=== PATIENT | female | born 1950 | race Caucasian/White ===

== ENCOUNTER 2017-08-24 17:21 | Emergency (ER) | payer MEDICARE ==
[~2017-08-24] VITALS: Ht 162.6 cm; Wt 81.0 kg
[~2017-08-24 17:21] MED LIST: TAB-TAB PO; TRAM50 PO; VITA-83 PO; ZOVI800T13 PO
[2017-08-24 17:24] VITALS: BP 231/123; PULSE 98; RESP 16; TEMP 99.3; O2SAT 98
[2017-08-24] MEDS ORDERED: LACTCAP8 PO (17:37)
[2017-08-24] MEDS ORDERED: ASCO1CAP PO (17:37)
[2017-08-24] MEDS ORDERED: MULTCAP3 PO (17:37)
[2017-08-24] MEDS ORDERED: SODIUM CHLOR 0.9% 1000 ML INJ 1,000 ML IV SCH (17:40)
[2017-08-24] MEDS ORDERED: SODIUM CHLORIDE 0.9% FLUSH 10 ML FLUSH IV FLUSH PRN (17:45)
--- NOTE | 2017-08-24 17:49 | PD ---
HPI Chief Complaint: Abdominal Pain Time Seen by Provider: 17:27 Travel History International Travel<30 days: No Contact w/Intl Traveler<30days: No Traveled to known affect area: No History of Present Illness HPI The patient is a 66-year-old female who presents to the emergency department via private vehicle for abdominal pain, cramping, decreased bowel movements. The patient states her symptoms started a week ago last Tuesday with diffuse abdominal cramping. The patient states she had a few episodes of loose, watery, stool which is minimal. She then developed stool which appear to be mucus, occasionally dark colored, occasionally with a small amount of blood. She does have a history of external hemorrhoids and states the bleeding may be from the hemorrhoids. However, she has been able to eat without difficulty, but notes no bowel movement except for one small one last Tuesday for approximately 1 week. She denies any nausea or vomiting. She does complain of abdominal bloating and mild distention. She denies any known history of colon cancer but is never had a colonoscopy and does not follow up with a primary physician on a regular basis. She does have a history of hypertension but takes no medications for her blood pressure at this time. She did note a fever as high as 99.7 over the weekend. She denies any dysuria. She denies any previous abdominal surgeries. Symptoms are moderate. [facility] Past Medical History Narrative Medical Hypertension Diminished Hearing: No Hypertension: Yes Immunizations Current: Yes Past Surgical History Other Surgery: Yes (TONSILS AND ADENOIDS) Social History Alcohol Use: Yes (3-4 DRINKS/DAY) Tobacco Use: Yes (1PPD) Substance Use: No Allergies-Medications (Allergen,Severity, Reaction): Coded Allergies: No Known Allergies (Unverified Adverse Reaction, Unknown, 08/24/17) Reported Meds & Prescriptions Reported Meds & Active Scripts Active Reported Probiotic (Lactobacillus Acidophilus) 10 Billion Cell Cap 1 Cap PO TIDAC Multivitamins (Multiple Vitamin) 1 Cap Cap 1 Cap PO DAILY Vitamin C Tr (Ascorbic Acid) 500 Mg Caper 1,000 Mg PO DAILY Review of Systems Except as stated in HPI: all other systems reviewed are Neg General / Constitutional: Positive: Fever Cardiovascular: No: Chest Pain or Discomfort Respiratory: No: Shortness of Breath Gastrointestinal: Positive: Diarrhea (A few real small watery bowel movements with mucus), Abdominal Pain, Constipation, No: Nausea, Vomiting, Loss of Appetite Genitourinary: No: Dysuria Skin: No Rash Physical Exam Narrative GENERAL: Awake, alert, pleasant 66-year-old female who appears her stated age and is in no acute respiratory distress. SKIN: Focused skin assessment warm/dry. HEAD: Atraumatic. Normocephalic. EYES: Pupils equal and round. No scleral icterus. No injection or drainage. ENT: No nasal bleeding or discharge. Mucous membranes pink and moist. NECK: Trachea midline. No JVD. CARDIOVASCULAR: Regular rate and rhythm. No murmur appreciated. RESPIRATORY: No accessory muscle use. Clear to auscultation. Breath sounds equal bilaterally. GASTROINTESTINAL: Abdomen soft, minimal tenderness. No guarding or rigidity. Heart rate in the 90s. Back: No CVA tenderness. Rectal: External hemorrhoid noted. No fecal impaction on digital exam. MUSCULOSKELETAL: No obvious deformities. No clubbing. No cyanosis. No edema. NEUROLOGICAL: Awake and alert. No obvious cranial nerve deficits. Motor grossly within normal limits. Normal speech. PSYCHIATRIC: Appropriate mood and affect; insight and judgment normal. Data Data Last Documented VS Vital Signs Date Time Temp Pulse Resp B/P (MAP) Pulse Ox O2 Delivery O2 Flow Rate FiO2 08/24/17 17:58 18 97 Room Air 08/24/17 17:24 99.3 98 231/123 (159) Orders Orders Complete Blood Count With Diff (08/24/17 17:40) Comprehensive Metabolic Panel (08/24/17 17:40) Lipase (08/24/17 17:40) Lactic Acid (08/24/17 17:40) Urinalysis - C+S If Indicated (08/24/17 17:40) Ct Abd/Pel W Iv Contrast(Rout) (08/24/17 17:40) Iv Access Insert/Monitor (08/24/17 17:40) Ecg Monitoring (08/24/17 17:40) Oximetry (08/24/17 17:40) Sodium Chlor 0.9% 1000 Ml Inj (Ns 1000 M (08/24/17 17:40) Sodium Chloride 0.9% Flush (Ns Flush) (08/24/17 17:45) Diatrizoate Liq ( Gastroview Liq) (08/24/17 17:59) Iohexol 350 Inj (Omnipaque 350 Inj) (08/24/17 19:35) Labs Laboratory Tests Test 08/24/17 17:50 08/24/17 19:09 White Blood Count 5.6 TH/MM3 Red Blood Count 4.10 MIL/MM3 Hemoglobin 14.9 GM/DL Hematocrit 43.9 % Mean Corpuscular Volume 107.0 FL Mean Corpuscular Hemoglobin 36.3 PG Mean Corpuscular Hemoglobin Concent 34.0 % Red Cell Distribution Width 12.4 % Platelet Count 330 TH/MM3 Mean Platelet Volume 8.5 FL Neutrophils (%) (Auto) 57.4 % Lymphocytes (%) (Auto) 27.1 % Monocytes (%) (Auto) 13.1 % Eosinophils (%) (Auto) 1.4 % Basophils (%) (Auto) 1.0 % Neutrophils # (Auto) 3.2 TH/MM3 Lymphocytes # (Auto) 1.5 TH/MM3 Monocytes # (Auto) 0.7 TH/MM3 Eosinophils # (Auto) 0.1 TH/MM3 Basophils # (Auto) 0.1 TH/MM3 CBC Comment DIFF FINAL Differential Comment Blood Urea Nitrogen 9 MG/DL Creatinine 0.67 MG/DL Random Glucose 90 MG/DL Total Protein 7.8 GM/DL Albumin 3.7 GM/DL Calcium Level 9.2 MG/DL Alkaline Phosphatase 88 U/L Aspartate Amino Transf (AST/SGOT) 42 U/L Alanine Aminotransferase (ALT/SGPT) 23 U/L Total Bilirubin 0.4 MG/DL Sodium Level 139 MEQ/L Potassium Level 3.4 MEQ/L Chloride Level 102 MEQ/L Carbon Dioxide Level 27.7 MEQ/L Anion Gap 9 MEQ/L Estimat Glomerular Filtration Rate 88 ML/MIN Lactic Acid Level 1.3 mmol/L Lipase 124 U/L Urine Color YELLOW Urine Turbidity CLEAR Urine pH 6.5 Urine Specific Brooks 1.010 Urine Protein NEG mg/dL Urine Glucose (UA) NEG mg/dL Urine Ketones 15 mg/dL Urine Occult Blood NEG Urine Nitrite NEG Urine Bilirubin NEG Urine Urobilinogen 0.2 MG/DL Urine Leukocyte Esterase NEG Urine RBC 0-3 /hpf Urine WBC 0-2 /hpf Urine Squamous Epithelial Cells 6-8 /hpf Urine Bacteria OCC /hpf Urine Hyaline Casts 0-2 /lpf Microscopic Urinalysis Comment CULT NOT INDICATED MDM Medical Decision Making Medical Screen Exam Complete: Yes Emergency Medical Condition: Yes Medical Record Reviewed: Yes Interpretation(s) Laboratory Tests Test 08/24/17 17:50 08/24/17 19:09 White Blood Count 5.6 TH/MM3 Red Blood Count 4.10 MIL/MM3 Hemoglobin 14.9 GM/DL Hematocrit 43.9 % Mean Corpuscular Volume 107.0 FL Mean Corpuscular Hemoglobin 36.3 PG Mean Corpuscular Hemoglobin Concent 34.0 % Red Cell Distribution Width 12.4 % Platelet Count 330 TH/MM3 Mean Platelet Volume 8.5 FL Neutrophils (%) (Auto) 57.4 % Lymphocytes (%) (Auto) 27.1 % Monocytes (%) (Auto) 13.1 % Eosinophils (%) (Auto) 1.4 % Basophils (%) (Auto) 1.0 % Neutrophils # (Auto) 3.2 TH/MM3 Lymphocytes # (Auto) 1.5 TH/MM3 Monocytes # (Auto) 0.7 TH/MM3 Eosinophils # (Auto) 0.1 TH/MM3 Basophils # (Auto) 0.1 TH/MM3 CBC Comment DIFF FINAL Differential Comment Blood Urea Nitrogen 9 MG/DL Creatinine 0.67 MG/DL Random Glucose 90 MG/DL Total Protein 7.8 GM/DL Albumin 3.7 GM/DL Calcium Level 9.2 MG/DL Alkaline Phosphatase 88 U/L Aspartate Amino Transf (AST/SGOT) 42 U/L Alanine Aminotransferase (ALT/SGPT) 23 U/L Total Bilirubin 0.4 MG/DL Sodium Level 139 MEQ/L Potassium Level 3.4 MEQ/L Chloride Level 102 MEQ/L Carbon Dioxide Level 27.7 MEQ/L Anion Gap 9 MEQ/L Estimat Glomerular Filtration Rate 88 ML/MIN Lactic Acid Level 1.3 mmol/L Lipase 124 U/L Urine Color YELLOW Urine Turbidity CLEAR Urine pH 6.5 Urine Specific Brooks 1.010 Urine Protein NEG mg/dL Urine Glucose (UA) NEG mg/dL Urine Ketones 15 mg/dL Urine Occult Blood NEG Urine Nitrite NEG Urine Bilirubin NEG Urine Urobilinogen 0.2 MG/DL Urine Leukocyte Esterase NEG Urine RBC 0-3 /hpf Urine WBC 0-2 /hpf Urine Squamous Epithelial Cells 6-8 /hpf Urine Bacteria OCC /hpf Urine Hyaline Casts 0-2 /lpf Microscopic Urinalysis Comment CULT NOT INDICATED Last Impressions Abdomen/Pelvis CT 08/24/17 1740 Signed Impressions: CONCLUSION: 1. Diverticulitis sigmoid colon without perforation or abscess. 2. Cholelithiasis. 3. Small hiatal hernia. 4. Calcified leiomyomas. Differential Diagnosis Differential diagnosis includes constipation, partial small bowel obstruction, large bowel obstruction, colon cancer, enteritis, colitis, diverticulitis, dehydration. Narrative Course IV was established, labs are drawn and sent, and the patient was placed on cardiac telemetry monitoring and continuous pulse oximetry monitoring. The patient declined pain medication and antiemetics. Digital rectal exam was performed with a female nurse, no fecal impaction noted, external hemorrhoid was noted but no active bleeding. CT of the abdomen and pelvis with IV and oral contrast was ordered. Laboratory evaluation is unremarkable. CT the abdomen and pelvis reveals diverticulitis. Patient's blood pressure was elevated, she was administered labetalol 20 mg intravenously through the IV. She will be placed on Cipro, Flagyl, [place] as needed for pain. I will also place her on lisinopril 20 mg daily for her blood pressure, she is advised to follow-up with a primary physician. Return if symptoms worsen or progress. Patient agrees and understands, is comfortable with this plan of care. Diagnosis Primary Impression: Diverticulitis Additional Impression: Hypertension Qualified Codes: I10 - Essential (primary) hypertension Patient Instructions: General Instructions Additional Instructions: Medications as directed. Please provide the patient a copy of her CT results and lab results at discharge. Follow-up with a primary physician. Return if symptoms worsen or progress. Med/Other Pt SpecificInfo: Prescription(s) given Scripts Hydrocodone-Acetaminophen ([place]) 5 Mg-325 Mg Tab 1 TAB PO Q6H Y for PAIN, #12 TAB 0 Refills Prov: Matti Payne MD 08/24/17 Lisinopril (Lisinopril) 20 Mg Tab 20 MG PO DAILY, #30 TAB 2 Refills Prov: Matti Payne MD 08/24/17 Metronidazole (Flagyl) 500 Mg Tab 500 MG PO BID for Infection for 7 Days, #14 TAB 0 Refills Prov: Matti Payne MD 08/24/17 Ciprofloxacin (Cipro) 500 Mg Tab 500 MG PO BID for Infection for 7 Days, #14 TAB 0 Refills Prov: Matti Payne MD 08/24/17 Disposition: 01 DISCHARGE HOME Condition: Stable Matti Payne MD Aug 24, 2017 17:48
[2017-08-24 17:58] VITALS: RESP 18; O2SAT 97
[2017-08-24] MEDS ORDERED: DIATRIZOATE MEGLUM/DIATRIZOATE SOD 9 ML CUP ONE (17:59)
[2017-08-24 18:03] LABS: AUTOMATED NEUTROPHIL # 3.2 TH/MM3 (1.8-7.7); BASOPHIL # 0.1 TH/MM3 (0-0.2); EOSINOPHIL # 0.1 TH/MM3 (0-0.4); EOSINOPHIL % 1.4 % (0.0-4.0); HEMATOCRIT 43.9 % (35.0-46.0); HEMOGLOBIN 14.9 GM/DL (11.6-15.3); LYMPH % 27.1 % (9.0-44.0); LYMPHOCYTE # 1.5 TH/MM3 (1.0-4.8); MEAN CORPUSCULAR HEMOGLOBIN 36.3 PG (27.0-34.0); MEAN PLATELET VOLUME 8.5 FL (7.0-11.0); MONO % 13.1 % (0.0-8.0); MONOCYTE # 0.7 TH/MM3 (0-0.9); NEUT % 57.4 % (16.0-70.0); PLATELET COUNT 330 TH/MM3 (150-450); RED CELL DISTRIBUTION WIDTH 12.4 % (11.6-17.2); WHITE BLOOD COUNT 5.6 TH/MM3 (4.0-11.0)
[2017-08-24 18:13] LABS: CHLORIDE 102 MEQ/L (98-107); SODIUM (NA) 139 MEQ/L (136-145)
[2017-08-24 18:16] LABS: CALCIUM 9.2 MG/DL (8.5-10.1)
[2017-08-24 18:17] LABS: ALBUMIN 3.7 GM/DL (3.4-5.0); BICARBONATE 27.7 MEQ/L (21.0-32.0); BLOOD UREA NITROGEN 9 MG/DL (7-18); GLUCOSE,RANDOM 90 MG/DL (74-106)
[2017-08-24 18:20] LABS: ALT (GPT) 23 U/L (10-53); AST (GOT) 42 U/L (15-37); CREATININE 0.67 MG/DL (0.50-1.00); GLOMERULAR FILTRATION RATE 88 ML/MIN (>89)
[2017-08-24 18:21] LABS: TOTAL BILIRUBIN ADULT 0.4 MG/DL (0.2-1.0); TOTAL PROTEIN 7.8 GM/DL (6.4-8.2)
[2017-08-24 18:22] LABS: ALKALINE PHOSPHATASE 88 U/L (45-117)
[2017-08-24] MEDS ORDERED: IOHEXOL 350 MG/ML 10 ML VIAL (for RAD DIAG) IVCONTRAST ONE (19:35)
[2017-08-24 19:36] LABS: BILIRUBIN, URINE NEG (NEG); BLOOD, URINE NEG (NEG); GLUCOSE,URINE NEG (NEG); KETONE, URINE 15 mg/dL (NEG); NITRITE,URINE NEG (NEG); PH, URINE 6.5 (5.0-8.5); URINE COLOR YELLOW (YELLW/STRAW); URINE LEUKOCYTE ESTERASE NEG (NEG)
--- NOTE | 2017-08-24 19:42 | RADRPT ---
EXAM DATE: 08/24/2017 7:35 PM EDT AGE/SEX: 66 years / Female INDICATIONS: Intermittent abdominal pain and cramping x 1 week with decreased fecal output. CLINICAL DATA: This is the patient's initial encounter. Patient reports that signs and symptoms have been present for 1 week and indicates a pain score of 2/10. MEDICAL/SURGICAL HISTORY: Hypertension. None. ORAL CONTRAST: Prescribed oral contrast ingested. RADIATION DOSE: 18.58 CTDI (mGy) COMPARISON: No prior exams available for comparison. TECHNIQUE: Multiple contiguous axial images were obtained through the abdomen and pelvis following b olus infusion of 80 ml Omnipaque 350 (iohexol) nonionic water-soluble contrast as a single exam dos e. Prescribed oral contrast ingested. Using automated exposure control and adjustment of the mA and/ or kV according to patient size, radiation dose was kept as low as reasonably achievable to obtain op timal diagnostic quality images. DICOM format image data is available electronically for review and comparison. FINDINGS: Lower Lungs: The visualized lower lungs are clear. Liver: The liver has a homogeneous density without space-occupying lesion. Cholelithiasis. There is n o dilation of the biliary tree. Spleen: Homogeneous density without enlargement. Pancreas: Unremarkable without mass or calcification. Kidneys: Normal in size and shape. No evidence of mass or hydronephrosis. Adrenal Glands: Unremarkable. Aorta: The aorta and proximal iliac vessels are grossly unremarkable without aneurysmal dilation. Bowel/Mesentery: Diverticulitis of the sigmoid colon with wall thickening and inflammatory changes. N o perforation or abscess. Small hiatal hernia. Abdominal Wall: Intact. Retroperitoneum: No evidence of adenopathy in the retrocrural, para-aortic, or deep pelvic regions. Bladder: Contours are smooth. Reproductive Organs: Calcified leiomyomas. Inguinal: The inguinal region is unremarkable without evidence of adenopathy. Bony Structures: Unremarkable. CONCLUSION: 1. Diverticulitis sigmoid colon without perforation or abscess. 2. Cholelithiasis. 3. Small hiatal hernia. 4. Calcified leiomyomas. Electronically signed by: Estevan Raymundo MD 08/24/2017 7:41 PM EDT
[2017-08-24 19:45] LABS: HYALINE CAST, URINE 0-2 /lpf (RARE)
[2017-08-24 19:46] LABS: BACTERIA, URINE OCC /hpf; RBC, URINE 0-3 /hpf (0-3); WBC, URINE 0-2 /hpf (0-5)
[2017-08-24 19:54] VITALS: BP 198/123; PULSE 95; RESP 17; O2SAT 95
[2017-08-24] MEDS ORDERED: LISI-515 PO (19:57)
[2017-08-24] MEDS ORDERED: METR-1 PO (19:57)
[2017-08-24] MEDS ORDERED: CIPR-9 PO (19:57)
[2017-08-24] MEDS ORDERED: NORC5TAB PO (19:57)
[2017-08-24] MEDS ORDERED: CIPROFLOXACIN 500 MG TAB PO ONE (20:00)
[2017-08-24] MEDS ORDERED: metroNIDAZOLE 500 MG TAB PO ONE (20:00)
[2017-08-24] MEDS ORDERED: LABETALOL HCL 100 MG/20 ML VIAL IV PUSH ONE (20:00)
[2017-08-24 20:24] VITALS: BP 171/109
== END 2017-08-24 20:26 | disposition home or self-care (01) ==
LOC: PHED 17:21
DX: K57.32 Diverticulitis of large intestine without perforation or abscess without bleeding (principal); I10 Essential (primary) hypertension; K80.20 Calculus of gallbladder without cholecystitis without obstruction; K44.9 Diaphragmatic hernia without obstruction or gangrene; K64.4 Residual hemorrhoidal skin tags; F17.200 Nicotine dependence, unspecified, uncomplicated
CPT/HCPCS: 74177; 80053; 81001; 83605; 83690; 85025; 96361; 96374; 99284; J7030; Q9963; Q9967